=== PATIENT | female | born 1965 | race Caucasian/White ===

== ENCOUNTER 2024-12-21 15:42 | Inpatient (IN) | payer SELFPAY ==
[~2024-12-21] VITALS: Ht 154.9 cm; Wt 61.7 kg
[2024-12-21 16:36] LABS: BG BASE EXCESS 1.6 mmol/L (-2.0-3.0); BG DEOXYHEMOGLOBIN 3.9 % (0.0-5.0); BG FRACTION INSPIRED OXYGEN 36; BG HCO3 ACT 27.2 mmol/L (21.0-28.0); BG OXYGEN SATURATION 96.1 % (94.0-98.0); BG OXYHEMOGLOBIN 95.1 % (94.0-98.0); BG PCO2 46.7 mmHg (32.0-45.0); BG PH 7.383 (7.350-7.450); BG SAMPLE SITE LEFT RADIAL; BG TOTAL HEMOGLOBIN 12.2 g/dL (12.0-16.0); BG VENT MODE NASAL CANNULA
[2024-12-21] MEDS ORDERED: SODIUM CHLORIDE 0.9% 1,000 ML IV ONE (16:45)
[2024-12-21 17:31] LABS: BASOPHILS % 0.2 % (0.0-2.0); HEMATOCRIT. 37.1 % (36.0-48.0); HEMOGLOBIN. 12.2 g/dL (12.0-16.0); LYMPHOCYTES % 12.3 % (20.0-50.0); MEAN CORPUSCULAR HEMOGLOBIN 30.5 pg (28.0-32.0); MEAN CORPUSCULAR HGB CONC 32.8 g/dL (31.0-37.0); MEAN PLATELET VOLUME 7.1 fl (7.4-10.4); NEUTROPHILS % 76.5 % (40.0-76.0); PLATELET 359 x1000/uL (130-400); RED BLOOD CELL COUNT 3.99 mill/uL (4.2-5.4); RED CELL DISTRIBUTION WIDTH 13.4 % (11.6-14.6); WHITE BLOOD COUNT 9.3 x1000/uL (4.5-11.0)
[2024-12-21 17:39] LABS: CHLORIDE 100 mEq/L (98-107); POTASSIUM 4.4 mEq/L (3.5-5.1); SODIUM 133 mEq/L (136-145)
[2024-12-21 17:40] LABS: CARBON DIOXIDE 24 mEq/L (21-32)
[2024-12-21 17:41] LABS: CALCIUM 8.7 mg/dL (8.7-10.4)
[2024-12-21 17:45] LABS: CREATININE 0.6 mg/dL (0.6-1.0)
[2024-12-21 17:46] LABS: UREA NITROGEN BLOOD 12 mg/dL (9-23)
[2024-12-21 17:48] LABS: TROPONIN I HIGH SENSITIVITY 5 ng/L (3.0-34)
[2024-12-21 17:50] LABS: GLUCOSE 427 mg/dL (70-105)
[2024-12-21] MEDS ORDERED: CLONIDINE 0.1MG TABLET PO PRN (20:15)
[2024-12-21] MEDS ORDERED: DEXTROSE 50% WATER 50ML SYRINGE IV PRN (20:15)
[2024-12-21] MEDS ORDERED: ONDANSETRON HCL 4MG/2ML INJ IV PRN (20:15)
[2024-12-21] MEDS ORDERED: MAGNESIUM/ALUMINUM HYDROXIDE/SIMETHICONE 30ML UDC PO PRN (20:15)
[2024-12-21] MEDS ORDERED: IPRATROPIUM/ALBUTEROL 0.5-3(2.5)MG/3ML NEB HHN PRN (20:15)
[2024-12-21] MEDS: BLOOD SUGAR DIAGNOSTIC STRIP TEST SCH (21:28)
[2024-12-21] MEDS: FAMOTIDINE 20MG TABLET PO SCH (21:36)
[2024-12-21] MEDS: INSULIN LISPRO 100 UNITS/ML SUBCUT SCH (21:38)
[2024-12-21] MEDS: AMLODIPINE 5MG TABLET PO SCH (21:48)
[2024-12-21 22:00] LABS: PROTEIN TOTAL 6.9 g/dL (6.0-8.3)
[2024-12-21 22:02] LABS: T4 FREE 1.3 ng/dL (0.89-1.76); THYROID STIMULATING HORMONE 1.31 uIU/mL (0.55-4.78)
[2024-12-22] VITALS (7 sets, daily range): BP systolic 128–151; BP diastolic 70–100; PULSE 100–106; RESP 15–31; TEMP 36.5–36.9; O2SAT 94–96
[2024-12-22 00:59] LABS: CLARITY URINE CLEAR (CLEAR); COLOR URINE YELLOW (YELLOW); GLUCOSE URINE 3+ (NEGATIVE); KETONES URINE 2+ (NEGATIVE); LEUKOCYTE ESTERASE URINE NEGATIVE (NEGATIVE); NITRITE URINE NEGATIVE (NEGATIVE); OCCULT BLOOD URINE NEGATIVE (NEGATIVE); PROTEIN URINE NEGATIVE (NEGATIVE); SPECIFIC GRAVITY URINE 1.029 (1.005-1.030); UROBILINOGEN URINE 0.2 E.U./dL (0.2-1.0)
[2024-12-22 06:38] LABS: BACTERIA URINE 3+; RBC URINE 0-2 /hpf (0-2); SQUAMOUS EPITHELIAL CELL URINE FEW /lpf (RARE/1+); WBC URINE 0-2 /hpf (0-2)
[2024-12-22 12:00] LABS: CHLORIDE 103 mEq/L (98-107); POTASSIUM 3.6 mEq/L (3.5-5.1); SODIUM 138 mEq/L (136-145)
[2024-12-22 12:01] LABS: CALCIUM 9.2 mg/dL (8.7-10.4); CARBON DIOXIDE 29 mEq/L (21-32)
[2024-12-22 12:06] LABS: CREATININE 0.5 mg/dL (0.6-1.0); GLUCOSE 187 mg/dL (70-105); UREA NITROGEN BLOOD 10 mg/dL (9-23)
[2024-12-22 12:07] LABS: TROPONIN I HIGH SENSITIVITY 4 ng/L (3.0-34)
[2024-12-22] MEDS: PIPERACILLIN/TAZO 3.375G/50ML 100 ML IV SCH (12:09)
[2024-12-22 12:11] LABS: BASOPHILS % 0.2 % (0.0-2.0); EOSINOPHILS % 1.7 % (0.0-5.0); HEMATOCRIT. 36.6 % (36.0-48.0); HEMOGLOBIN. 12.3 g/dL (12.0-16.0); LYMPHOCYTES % 18.9 % (20.0-50.0); MEAN CORPUSCULAR HEMOGLOBIN 30.9 pg (28.0-32.0); MEAN CORPUSCULAR HGB CONC 33.7 g/dL (31.0-37.0); MEAN CORPUSCULAR VOLUME 91.6 fL (81.0-99.0); MEAN PLATELET VOLUME 7.2 fl (7.4-10.4); MONOCYTES % 10.7 % (2.0-8.0); NEUTROPHILS % 68.5 % (40.0-76.0); PLATELET 396 x1000/uL (130-400); RED BLOOD CELL COUNT 3.99 mill/uL (4.2-5.4); RED CELL DISTRIBUTION WIDTH 13.3 % (11.6-14.6); WHITE BLOOD COUNT 8.8 x1000/uL (4.5-11.0)
[2024-12-22 12:15] LABS: CREATINE KINASE < 15 IU/L (34-145)
[2024-12-22] MEDS ORDERED: HYDRALAZINE 20MG/ML VIAL IV PRN (15:15)
[2024-12-22 18:57] LABS: INR 0.9; PARTIAL THROMBOPLASTIN TIME 25.5 sec (23.4-31.0); PROTHROMBIN TIME 10.5 sec (9.6-11.0)
[2024-12-22] MEDS: INSULIN GLARGINE 100 UNITS/ML SUBCUT SCH (21:52)
[2024-12-23] VITALS (11 sets, daily range): BP systolic 109–149; BP diastolic 60–99; PULSE 91–105; RESP 14–31; TEMP 36.6–37.3; O2SAT 88–100
[2024-12-23 07:37] LABS: CHLORIDE 100 mEq/L (98-107); POTASSIUM 3.8 mEq/L (3.5-5.1); SODIUM 135 mEq/L (136-145)
[2024-12-23 07:38] LABS: CALCIUM 9.5 mg/dL (8.7-10.4); CARBON DIOXIDE 28 mEq/L (21-32)
[2024-12-23 07:43] LABS: CREATININE 0.5 mg/dL (0.6-1.0); GLUCOSE 144 mg/dL (70-105); UREA NITROGEN BLOOD 12 mg/dL (9-23)
[2024-12-23 08:03] LABS: BASOPHILS % 0.2 % (0.0-2.0); EOSINOPHILS % 2.4 % (0.0-5.0); HEMATOCRIT. 37.8 % (36.0-48.0); HEMOGLOBIN. 12.5 g/dL (12.0-16.0); LYMPHOCYTES % 25.4 % (20.0-50.0); MEAN CORPUSCULAR HEMOGLOBIN 30.8 pg (28.0-32.0); MEAN CORPUSCULAR HGB CONC 33.1 g/dL (31.0-37.0); MEAN CORPUSCULAR VOLUME 92.9 fL (81.0-99.0); MEAN PLATELET VOLUME 7.8 fl (7.4-10.4); MONOCYTES % 10.2 % (2.0-8.0); NEUTROPHILS % 61.8 % (40.0-76.0); PLATELET 429 x1000/uL (130-400); RED BLOOD CELL COUNT 4.07 mill/uL (4.2-5.4); RED CELL DISTRIBUTION WIDTH 13.1 % (11.6-14.6)
[2024-12-23] MEDS: INSULIN LISPRO 100 UNITS/ML SUBCUT SCH (08:49)
[2024-12-23] MEDS ORDERED: SODIUM BICARBONATE 4% 2.4MEQ/5ML VIAL IV ONE (09:34)
[2024-12-23 18:06] LABS: BODY FLUID MONOCYTES 6 %; BODY FLUID RBC 218 /cu mm (0-2000); BODY FLUID WBC 359 /cu mm (0-200)
[2024-12-24] VITALS (12 sets, daily range): BP systolic 98–133; BP diastolic 48–84; PULSE 85–108; RESP 0–31; TEMP 36.3–37.1; O2SAT 91–100
[2024-12-24 08:22] LABS: BASOPHILS % 0.2 % (0.0-2.0); HEMATOCRIT. 36.6 % (36.0-48.0); HEMOGLOBIN. 12.3 g/dL (12.0-16.0); LYMPHOCYTES % 25.1 % (20.0-50.0); MEAN CORPUSCULAR HEMOGLOBIN 30.9 pg (28.0-32.0); MEAN CORPUSCULAR HGB CONC 33.6 g/dL (31.0-37.0); MEAN CORPUSCULAR VOLUME 91.9 fL (81.0-99.0); MEAN PLATELET VOLUME 7.4 fl (7.4-10.4); MONOCYTES % 9.5 % (2.0-8.0); NEUTROPHILS % 62.2 % (40.0-76.0); PLATELET 373 x1000/uL (130-400); RED BLOOD CELL COUNT 3.99 mill/uL (4.2-5.4); RED CELL DISTRIBUTION WIDTH 13.3 % (11.6-14.6); WHITE BLOOD COUNT 8.3 x1000/uL (4.5-11.0)
[2024-12-24 08:25] LABS: CALCIUM 8.8 mg/dL (8.7-10.4); CARBON DIOXIDE 27 mEq/L (21-32); CHLORIDE 103 mEq/L (98-107); POTASSIUM 3.6 mEq/L (3.5-5.1); SODIUM 138 mEq/L (136-145)
[2024-12-24 08:30] LABS: CREATININE 0.5 mg/dL (0.6-1.0); GLUCOSE 234 mg/dL (70-105)
[2024-12-24 08:31] LABS: UREA NITROGEN BLOOD 13 mg/dL (9-23)
[2024-12-24 08:32] LABS: PHOSPHORUS 3.8 mg/dL (2.5-4.9)
[2024-12-24] MEDS ORDERED: NALOXONE HCL 0.4MG/ML VIAL IV PRN (12:15)
[2024-12-24] MEDS: SODIUM HYPOCHLORITE 0.125% 473ML SOLUTION TOP SCH (15:06)
[2024-12-24] MEDS: MAGNESIUM 2 G PREMIX 50 ML IV NR (16:39)
[2024-12-25] VITALS (14 sets, daily range): BP systolic 105–128; BP diastolic 49–115; PULSE 92–110; RESP 13–28; TEMP 36.7–37.2; O2SAT 93–100
[2024-12-25 00:49] LABS: BG CARBOXYHEMOGLOBIN 0.5 % (0.5-1.5); BG DEOXYHEMOGLOBIN 10.3 % (0.0-5.0); BG FRACTION INSPIRED OXYGEN 100; BG HCO3 ACT 28.4 mmol/L (21.0-28.0); BG METHEMOGLOBIN 0.3 % (0.5-1.5); BG OXYGEN SATURATION 89.6 % (94.0-98.0); BG OXYHEMOGLOBIN 88.9 % (94.0-98.0); BG PCO2 46.9 mmHg (32.0-45.0); BG PO2 57.7 mmHg (83.0-108.0); BG SAMPLE SITE RIGHT RADIAL; BG TOTAL HEMOGLOBIN 12.7 g/dL (12.0-16.0); BG VENT MODE MASK - NRB
[2024-12-25] MEDS: PIPERACILLIN/TAZO 3.375G/50ML 50 ML IV SCH (05:23)
[2024-12-25 06:09] LABS: CARBON DIOXIDE 27 mEq/L (21-32); CHLORIDE 102 mEq/L (98-107); SODIUM 136 mEq/L (136-145)
[2024-12-25 06:11] LABS: CALCIUM 8.7 mg/dL (8.7-10.4)
[2024-12-25 06:12] LABS: BASOPHILS % 0.2 % (0.0-2.0); EOSINOPHILS % 2.8 % (0.0-5.0); HEMATOCRIT. 35.5 % (36.0-48.0); HEMOGLOBIN. 11.7 g/dL (12.0-16.0); LYMPHOCYTES % 20.8 % (20.0-50.0); MEAN CORPUSCULAR HEMOGLOBIN 30.4 pg (28.0-32.0); MEAN CORPUSCULAR VOLUME 92.1 fL (81.0-99.0); MEAN PLATELET VOLUME 7.2 fl (7.4-10.4); MONOCYTES % 9.5 % (2.0-8.0); NEUTROPHILS % 66.7 % (40.0-76.0); PLATELET 389 x1000/uL (130-400); RED BLOOD CELL COUNT 3.86 mill/uL (4.2-5.4); WHITE BLOOD COUNT 9.3 x1000/uL (4.5-11.0)
[2024-12-25 06:15] LABS: CREATININE 0.6 mg/dL (0.6-1.0); GLUCOSE 253 mg/dL (70-105); UREA NITROGEN BLOOD 12 mg/dL (9-23)
[2024-12-25] MEDS ORDERED: LIDOCAINE HCL 1% 10 MG/ML 10ML VIAL ONE (12:36)
[2024-12-25] MEDS ORDERED: HYDROCODONE/ACETAMINOPHEN 5/325MG TABLET PO PRN (18:30)
[2024-12-25] MEDS: HYDROCODONE/ACETAMINOPHEN 5/325MG TABLET PO PRN (18:41)
[2024-12-25] MEDS: INSULIN GLARGINE 100 UNITS/ML SUBCUT SCH (21:42)
[2024-12-26] VITALS (17 sets, daily range): BP systolic 103–152; BP diastolic 55–135; PULSE 88–126; RESP 18–28; TEMP 36.2–37.3; O2SAT 50–99
[2024-12-26 07:06] LABS: CARBON DIOXIDE 27 mEq/L (21-32); CHLORIDE 103 mEq/L (98-107); POTASSIUM 4.1 mEq/L (3.5-5.1); SODIUM 137 mEq/L (136-145)
[2024-12-26 07:07] LABS: CALCIUM 8.7 mg/dL (8.7-10.4)
[2024-12-26 07:12] LABS: CREATININE 0.5 mg/dL (0.6-1.0); GLUCOSE 184 mg/dL (70-105); UREA NITROGEN BLOOD 11 mg/dL (9-23)
[2024-12-26 07:18] LABS: BASOPHILS % 0.3 % (0.0-2.0); EOSINOPHILS % 3.8 % (0.0-5.0); HEMATOCRIT. 34.9 % (36.0-48.0); HEMOGLOBIN. 11.5 g/dL (12.0-16.0); LYMPHOCYTES % 23.2 % (20.0-50.0); MEAN CORPUSCULAR HEMOGLOBIN 30.3 pg (28.0-32.0); MEAN CORPUSCULAR HGB CONC 32.8 g/dL (31.0-37.0); MEAN CORPUSCULAR VOLUME 92.4 fL (81.0-99.0); MEAN PLATELET VOLUME 7.2 fl (7.4-10.4); MONOCYTES % 10.6 % (2.0-8.0); NEUTROPHILS % 62.1 % (40.0-76.0); PLATELET 387 x1000/uL (130-400); RED BLOOD CELL COUNT 3.78 mill/uL (4.2-5.4); RED CELL DISTRIBUTION WIDTH 13.3 % (11.6-14.6); WHITE BLOOD COUNT 8.1 x1000/uL (4.5-11.0)
[2024-12-26] MEDS: ACETAMINOPHEN 325MG TABLET PO PRN (22:17)
[2024-12-27] VITALS (18 sets, daily range): BP systolic 93–130; BP diastolic 52–76; PULSE 82–98; RESP 18–25; TEMP 36.4–37.4; O2SAT 88–99
[2024-12-27 06:03] LABS: CHLORIDE 103 mEq/L (98-107); POTASSIUM 3.8 mEq/L (3.5-5.1); SODIUM 138 mEq/L (136-145)
[2024-12-27 06:04] LABS: CALCIUM 8.9 mg/dL (8.7-10.4); CARBON DIOXIDE 28 mEq/L (21-32)
[2024-12-27 06:09] LABS: CREATININE 0.5 mg/dL (0.6-1.0)
[2024-12-27 06:10] LABS: GLUCOSE 180 mg/dL (70-105); UREA NITROGEN BLOOD 10 mg/dL (9-23)
[2024-12-27 08:25] LABS: HEMATOCRIT 35.9 % (36.0-48.0); HEMOGLOBIN 11.7 g/dL (12.0-16.0); MEAN CORPUSCULAR HEMOGLOBIN 30.1 pg (28.0-32.0); MEAN CORPUSCULAR HGB CONC 32.7 g/dL (31.0-37.0); PLATELET 394 x1000/uL (130-400); RED CELL DISTRIBUTION WIDTH 13.4 % (11.6-14.6); WHITE BLOOD COUNT 7.8 x1000/uL (4.5-11.0)
[2024-12-28] VITALS (17 sets, daily range): BP systolic 112–134; BP diastolic 67–77; PULSE 81–96; RESP 16–33; TEMP 36.1–36.4; O2SAT 93–99
[2024-12-29] VITALS (13 sets, daily range): BP systolic 91–142; BP diastolic 58–94; PULSE 81–92; RESP 13–27; TEMP 36.3–37.2; O2SAT 95–100
[2024-12-29 06:20] LABS: CARBON DIOXIDE 28 mEq/L (21-32); CHLORIDE 102 mEq/L (98-107); POTASSIUM 4.1 mEq/L (3.5-5.1); SODIUM 136 mEq/L (136-145)
[2024-12-29 06:21] LABS: CALCIUM 9.2 mg/dL (8.7-10.4)
[2024-12-29 06:26] LABS: CREATININE 0.5 mg/dL (0.6-1.0); GLUCOSE 167 mg/dL (70-105); UREA NITROGEN BLOOD 8 mg/dL (9-23)
[2024-12-29 07:55] LABS: BASOPHILS % 0.4 % (0.0-2.0); EOSINOPHILS % 4.1 % (0.0-5.0); HEMATOCRIT. 36.1 % (36.0-48.0); HEMOGLOBIN. 11.8 g/dL (12.0-16.0); LYMPHOCYTES % 25.8 % (20.0-50.0); MEAN CORPUSCULAR HEMOGLOBIN 29.9 pg (28.0-32.0); MEAN CORPUSCULAR HGB CONC 32.8 g/dL (31.0-37.0); MEAN CORPUSCULAR VOLUME 91.2 fL (81.0-99.0); MEAN PLATELET VOLUME 7.2 fl (7.4-10.4); MONOCYTES % 11.1 % (2.0-8.0); NEUTROPHILS % 58.6 % (40.0-76.0); PLATELET 435 x1000/uL (130-400); RED BLOOD CELL COUNT 3.96 mill/uL (4.2-5.4); RED CELL DISTRIBUTION WIDTH 13.3 % (11.6-14.6); WHITE BLOOD COUNT 6.8 x1000/uL (4.5-11.0)
[2024-12-30] VITALS (13 sets, daily range): BP systolic 94–130; BP diastolic 58–77; PULSE 79–90; RESP 1–29; TEMP 36.3–37; O2SAT 95–99
[2024-12-31] VITALS (13 sets, daily range): BP systolic 91–130; BP diastolic 54–94; PULSE 81–96; RESP 17–26; TEMP 36.3–37.1; O2SAT 98–99
[2025-01-01] VITALS (10 sets, daily range): BP systolic 81–133; BP diastolic 49–84; PULSE 72–98; RESP 11–23; TEMP 36.2–36.4; O2SAT 90–100
[2025-01-01] MEDS ORDERED: LANTUSUD SUBCUT (10:58)
[2025-01-01 11:55] LABS: BASOPHILS % 0.2 % (0.0-2.0); EOSINOPHILS % 2.5 % (0.0-5.0); HEMATOCRIT. 35.3 % (36.0-48.0); HEMOGLOBIN. 11.7 g/dL (12.0-16.0); LYMPHOCYTES % 19.9 % (20.0-50.0); MEAN CORPUSCULAR HEMOGLOBIN 30.4 pg (28.0-32.0); MEAN CORPUSCULAR HGB CONC 33.1 g/dL (31.0-37.0); MEAN CORPUSCULAR VOLUME 91.9 fL (81.0-99.0); MONOCYTES % 6.3 % (2.0-8.0); NEUTROPHILS % 71.1 % (40.0-76.0); PLATELET 488 x1000/uL (130-400); RED BLOOD CELL COUNT 3.85 mill/uL (4.2-5.4); RED CELL DISTRIBUTION WIDTH 12.9 % (11.6-14.6); WHITE BLOOD COUNT 6.2 x1000/uL (4.5-11.0)
[2025-01-01 12:01] LABS: CHLORIDE 104 mEq/L (98-107); POTASSIUM 3.9 mEq/L (3.5-5.1); SODIUM 137 mEq/L (136-145)
[2025-01-01 12:02] LABS: CALCIUM 8.7 mg/dL (8.7-10.4); CARBON DIOXIDE 28 mEq/L (21-32)
[2025-01-01 12:07] LABS: CREATININE 0.5 mg/dL (0.6-1.0); GLUCOSE 320 mg/dL (70-105); UREA NITROGEN BLOOD 11 mg/dL (9-23)
== END 2025-01-01 17:20 | disposition home or self-care (01) | DRG 143 ==
LOC: ER 15:42 → MICUSO 20:09 → EDBEDREQ 20:19 → EDBEDREQTM 20:19 → EDBEDREQSVC 20:19 → 5EST 12-22 14:29
PROVIDERS: ADMIT Hospitalist; ATTEND Hospitalist
PROC: 0W993ZZ Drainage of Right Pleural Cavity, Percutaneous Approach (ICD-10-PCS; principal; 2024-12-23)
PROC: 5A0955A Assistance with Respiratory Ventilation, Greater than 96 Consecutive Hours, High Flow/Velocity Cannula (ICD-10-PCS; 2024-12-25)
PROC: 0W9930Z Drainage of Right Pleural Cavity with Drainage Device, Percutaneous Approach (ICD-10-PCS; 2024-12-25)
DX: J93.83 Other pneumothorax (principal); J96.01 Acute respiratory failure with hypoxia; J90 Pleural effusion, not elsewhere classified; E78.5 Hyperlipidemia, unspecified; I16.9 Hypertensive crisis, unspecified; N63.20 Unspecified lump in the left breast, unspecified quadrant; I10 Essential (primary) hypertension; J93.9 Pneumothorax, unspecified; E11.65 Type 2 diabetes mellitus with hyperglycemia; Z85.3 Personal history of malignant neoplasm of breast; Z79.899 Other long term (current) drug therapy; Z91.199 Patient's noncompliance with other medical treatment and regimen due to unspecified reason
CPT/HCPCS: 32555; 36415; 36600; 71045; 80048; 80061; 81003; 82375; 82378; 82550; 82805; 82962; 83036; 83605; 83615; 83735; 83880; 83986; 84100; 84145; 84155; 84439; 84443; 84484; 85025; 85027; 86300; 86301; 86304; 88108; 88312; 93005; 93306; 93970; 94070; 99291; A4606; C1729; C1760; C1769; J1815; J2003; J2543; J3475; J3490; J7030; L8514